=== PATIENT | male | born 1975 | race Caucasian/White ===

== ENCOUNTER 2017-05-15 19:15 | Emergency (ER) | payer SELFPAY ==
[2017-05-15] MEDS ORDERED: Sodium Chloride 0.9% 1,000 ML PRIMARY IV ONE (19:34)
[2017-05-15] MEDS ORDERED: ONDANSETRON 4 MG/2 ML VIAL IVP ONE (19:34)
[2017-05-15] MEDS ORDERED: MORPHINE SULFATE 4 MG/1 ML IVP ONE (19:34)
--- NOTE | 2017-05-15 19:38 | PDOC ---
Abdomen/Flank HPI - General Chief Complaint: Abdomen Pain Stated Complaint: abd pain Date Seen by Provider: 05/15/17 Time Seen by Provider: 19:36 Source: POSITIVE: Patient Exam Limitations: POSITIVE: No limitations Nurse's Notes Reviewed & Considered: Yes - History of Present Illness Initial Comments: Patient comes in with 3 weeks of bilateral lower quadrant and suprapubic pain. Patient states his pain was worse initially 3 weeks ago but now he is tired of the pain and comes in for evaluation. He denies any headache, no sore throat, no chest pain or shortness of breath, no cough, no fever chills or sweats, no nausea vomiting or diarrhea, no hematuria or dysuria no rashes. Body Location Affected: REPORTS: Abdomen Timing: REPORTS: Constant Duration: >1 week (approximatly 3 weeks) Severity: Moderate Quality: REPORTS: "Pain", Sharpness Abdominal Pain Onset Location: REPORTS: RLQ, LLQ Abdominal Pain Radiation: REPORTS: Epigastric, Periumbilical Context: REPORTS: None Associated Symptoms: REPORTS: Constipation, Diarrhea Similar Symptoms Previously: No Recent Care Received: REPORTS: Denies Any Prior Injuries Related to Current Complaint?: No - Patient Allergies Allergies/Adverse Reactions: Allergies Allergy/AdvReac Type Severity Reaction Status Date / Time No Known Allergies Allergy Verified 05/15/17 19:55 Abdomen Progress - Results Reviewed by me Xrays/CTs/US Reviewed by me: Yes Discussed with Radiologist: Yes Lab Results Reviewed: Yes Lab Results:: Laboratory Results 05/15/17 05/15/17 Range/Units 20:59 21:31 WBC 8.07 (4.8-10.8) 10^3/uL RBC 4.94 (4.70-6.10) 10^6/uL Hgb 15.3 (14.0-18.0) g/dL Hct 45.1 (42.0-52.0) % MCV 91.3 H (80-90) FL MCH 31.0 (27-31) PG MCHC 33.9 (33-37) g/dL RDW Std Deviation 39.5 (39-50) fL RDW Coeff of Maddy 11.9 (11.5-14.5) % Plt Count 209 (140-350) 10*3/uL MPV 9.8 (7.4-12.2) FL Immature Gran % (Auto) 0.2 (0-5) % Neut % (Auto) 60.0 (50-80) % Lymph % (Auto) 24.2 (10-50) % [place] % (Auto) 11.5 (5-15) % Eos % (Auto) 3.0 (0-8) % Baso % (Auto) 1.1 H (0-1) % Immature Gran # (Auto) 0.02 10*3/UL Neut # (Auto) 4.84 10*3/UL Lymph # (Auto) 1.95 10*3/uL [place] # (Auto) 0.93 H (0.3-0.8) 10*3/UL Eos # (Auto) 0.24 10*3/UL Baso # (Auto) 0.09 10*3/UL WBC Morphology Comment Normal morphology (NORM) Plt Morphology Comment Normal morphology (NORM) RBC Morph Comment Normal morphology (NORM) Sodium 138 (135-145) meq/L Potassium 4.1 (3.8-5.2) meq/L Chloride 104 (98-112) meq/L Carbon Dioxide 22 L (23-33) meq/L Anion Gap 12 (5-20) BUN 20 (7-22) mg/dL Creatinine 1.0 (0.70-1.50) mg/dL Estimated GFR > 60 (>60 ml/min/1.73m(2)) BUN/Creatinine Ratio 20.00 (6-20) Glucose 101 (78-110) mg/dL Calculated Osmolality 288.0 (267-292) mOsm/kg Calcium 9.9 (8.7-10.7) mg/dL Magnesium 2.2 (1.6-2.4) mg/dL Total Bilirubin 0.4 (0.3-1.2) mg/dL AST 60 H (21-57) IU/L ALT 164 H (21-72) IU/L Alkaline Phosphatase 83 (38-126) IU/L C-Reactive Protein 0.8 (0.0-0.9) mg/dL Total Protein 7.7 (6.1-8.0) g/dL Albumin 4.6 (3.5-4.8) g/dL Globulin 3.1 (2.50-4.10) g/dL Albumin/Globulin Ratio 1.40 (1.3-2.0) mg/g Ur Collection Type Voided specimen Urine Color Yellow Urine Clarity Clear (CLEAR) Urine pH 6.0 (5.0-8.5) Ur Specific [place] 1.020 (1.005-1.030) Urine Protein Negative (NEG) mg/dl Urine Glucose (UA) Negative (NEG) mg/dL Urine Ketones Negative (NEG) Urine Occult Blood Negative (NEG) Urine Nitrate Negative (NEG) Urine Bilirubin Negative (NEG) Urine Urobilinogen 0.2 (0.2) EU/dL Ur Leukocyte Esterase Negative (NEG) Ur Culture Indicated? Culture not set - Patient's Progress Pain Medication Addressed: POSITIVE: Yes Re-examine Time: 23:45 Status: POSITIVE: Improved MDM / ED Course: Patient was evaluated, an IV started, blood drawn and sent to lab for studies, radiographic examinations were obtained. Findings: CBC, comprehensive metabolic panel, and urinalysis are unremarkable. CT scan of his abdomen and pelvis shows no acute intra-abdominal or intrapelvic abnormalities. Assessment: Abdominal pain unknown etiology. Plan: Discharge home, prescription for [place], prescription for Zofran, and instructions to follow-up with primary care physician. - Consult Counseled: POSITIVE: Patient, RE: Lab Results, RE: Radiology Results, RE: DX, RE : Need for F/U Patient Care Time - Estimated PCT Patient Care Time (In Minutes): 45 Vital Signs - Recent Vital Signs Vital Signs: Vital Signs (Last 8 hours) Temp Pulse Resp BP Pulse Ox 05/15/17 20:42 76 14 152/103 94 05/15/17 20:01 76 16 130/77 90 05/15/17 19:55 85 16 149/97 94 05/15/17 19:15 97.6 F 80 18 142/80 95 - VS Reviewed Vital Signs Reviewed: Yes Discharge Clinical Impression: Abdominal pain Condition: Stable Patient Instructions Given at Discharge: Acute Abdominal Pain (ED)
[2017-05-15 20:47] VITALS: RESP 14
[2017-05-15 21:02] LABS: BASOPHILS # (AUTO) 0.09 10*3/UL; BASOPHILS % (AUTO) 1.1 % (0-1); EOSINOPHILS # (AUTO) 0.24 10*3/UL; HEMATOCRIT 45.1 % (42.0-52.0); HEMOGLOBIN 15.3 g/dL (14.0-18.0); LYMPHOCYTES # (AUTO) 1.95 10*3/uL; MEAN CORPUSCULAR HGB CONC 33.9 g/dL (33-37); MEAN CORPUSCULAR VOLUME 91.3 FL (80-90); MEAN PLATELET VOLUME 9.8 FL (7.4-12.2); MONOCYTES # (AUTO) 0.93 10*3/UL (0.3-0.8); MONOCYTES % (AUTO) 11.5 % (5-15); NEUTROPHILS # (AUTO) 4.84 10*3/UL; RED BLOOD COUNT 4.94 10^6/uL (4.70-6.10)
[2017-05-15 21:03] LABS: PLATELET MORPHOLOGY COMMENT NORMAL MORPHOLOGY (NORM); RBC MORPHOLOGY COMMENT NORMAL MORPHOLOGY (NORM); WBC MORPHOLOGY COMMENT NORMAL MORPHOLOGY (NORM)
[2017-05-15 21:14] LABS: BLOOD UREA NITROGEN 20 mg/dL (7-22); C-REACTIVE PROTEIN 0.8 mg/dL (0.0-0.9); CALCIUM 9.9 mg/dL (8.7-10.7); EST GLOMERULAR FILTRATION > 60 (>60 ml/min/1.73m(2)); MAGNESIUM 2.2 mg/dL (1.6-2.4); SERUM ALBUMIN 4.6 g/dL (3.5-4.8)
[2017-05-15 21:35] LABS: BILIRUBIN,URINE NEGATIVE (NEG); CLARITY,URINE CLEAR (CLEAR); COLOR,URINE YELLOW; GLUCOSE, URINE (UA) NEGATIVE (NEG); NITRATE,URINE NEGATIVE (NEG); OCCULT BLOOD,URINE NEGATIVE (NEG); PROTEIN,URINE NEGATIVE (NEG); UROBILINOGEN,URINE 0.2 EU/dL (0.2)
[2017-05-15 21:36] LABS: URINE SAMPLE TYPE VOIDED SPECIMEN
--- NOTE | 2017-05-15 23:05 | DI ---
HISTORY: Left lower quadrant pain. COMPARISON: None available. TECHNIQUE: CT images of the abdomen and pelvis were obtained and submitted for interpretation. FINDINGS: Normal CT appearance of the pancreas, spleen, and adrenal glands. The patient is status p ost cholecystectomy. Diffuse hypoenhancement of the liver relative to the spleen is noted. No focal lesion is present. There is a hypoattenuating subcentimeter lesion in the interpolar region of the right kidney, too small to characterize. Ureters are unremarkable. No radiopaque collecting system calculi. No evidence of obstructive uropathy. There is likely a 3 mm nonobstructive nephrolith in th e lower pole of the left kidney. The prostate is mildly enlarged and contains coarse calcifications. Hollow viscus organs demonstrate normal course and caliber. The appendix is within normal limits. There is no intraperitoneal free air or fluid. Vascular structures are intact with atheromatous aortoiliac calcifications. No abdominopelvic lymphadenopathy is present. Post surgical changes are noted most likely representi ng left inguinal hernia repair. There is no inguinal or umbilical hernia. The lung bases are clear. Osseous structures are within normal limits for age. IMPRESSION: 1. Diffuse hypoenhancement of the liver relative to the spleen is noted, a finding commonly associate d with hepatic steatosis. 2. There is likely a 3 mm nonobstructive nephrolith in the lower pole of the left kidney. 3. Post surgical changes are noted most likely representing left inguinal hernia repair without evide nce of recurrent hernia.
[2017-05-15 23:37] VITALS: TEMP 97.6
== END 2017-05-16 00:10 | disposition home or self-care (01) ==
LOC: ER 19:15
DX: R10.31 Right lower quadrant pain (principal); R10.32 Left lower quadrant pain
CPT/HCPCS: 36415; 74177; 80053; 81003; 83735; 85025; 86140; 96361; 96374; 96375; 99284 ×2; J2270; J2405; J7030